=== PATIENT | female | born 1990 | race Caucasian/White ===

== ENCOUNTER 2019-04-24 13:06 | Outpatient (CLI) | payer MEDICAID ==
[2019-04-24 14:04] LABS: APPEARANCE,URINE SLIGHTLY-CLOUDY; BILIRUBIN,URINE NEGATIVE (NEGATIVE); COLOR,URINE YELLOW; GLUCOSE, URINE NEGATIVE (NEGATIVE); KETONES,URINE 80 mg/dL (NEGATIVE); LEUKOCYTE ESTERASE,URINE MODERATE (NEGATIVE); NITRITE,URINE NEGATIVE (NEGATIVE); PROTEIN,URINE NEGATIVE (NEGATIVE); URINE SPECIFIC GRAVITY 1.018; UROBILINOGEN,URINE NEGATIVE mg/dL (<2.0)
[2019-04-24] MEDS ORDERED: RINGERS SOLUTION,LACTATED 1,000 ML IV PRN (14:13)
[2019-04-24] MEDS ORDERED: ONDANSETRON HCL INJ/PF 4 MG/2 ML SDV IV ONE (14:14)
[2019-04-24] MEDS ORDERED: DIPHENOXYLATE HCL/ATROP SULF 2.5-0.025 MG TABLET PO ONE (14:15)
[2019-04-24 14:16] LABS: URINE AMPHETAMINES SCREEN NEGATIVE; URINE BARBITURATES SCREEN NEGATIVE; URINE BENZODIAZEPINES SCREEN NEGATIVE; URINE COCAINE SCREEN NEGATIVE; URINE MARIJUANA (THC) SCREEN NEGATIVE; URINE METHADONE SCREEN NEGATIVE; URINE PHENCYCLIDINE SCREEN NEGATIVE
[2019-04-24] MEDS ORDERED: ONDANSETRON HCL INJ/PF 4 MG/2 ML SDV ONE (14:20)
[2019-04-24] MEDS ORDERED: LOPERAMIDE HCL 2 MG CAPSULE PO ONE (14:26)
== END 2019-04-24 15:49 | disposition home or self-care (01) ==
LOC: LC 13:06
PROVIDERS: ATTEND Obstetrics & Gynecology
PROC: 4A1HXCZ Monitoring of Products of Conception, Cardiac Rate, External Approach (ICD-10-PCS; principal; 2019-04-24)
DX: O99.282 Endocrine, nutritional and metabolic diseases complicating pregnancy, second trimester (principal); E86.0 Dehydration; O21.2 Late vomiting of pregnancy; R10.9 Unspecified abdominal pain; Z3A.27 27 weeks gestation of pregnancy
CPT/HCPCS: 59899; 81001; 80307; J2405

== ENCOUNTER 2019-07-22 06:35 | Inpatient (IN) | payer MEDICAID ==
[2019-07-22] MEDS ORDERED: RINGERS SOLUTION,LACTATED 1,000 ML IV ONE (06:52)
[2019-07-22] MEDS ORDERED: PENICILLIN G POTASSIUM 5,000,000 UNIT in DEXTROSE 5%-WATER 100 ML IV ONE (06:52)
[2019-07-22 07:37] LABS: APPEARANCE,URINE SLIGHTLY-CLOUDY; BILIRUBIN,URINE NEGATIVE (NEGATIVE); COLOR,URINE YELLOW; GLUCOSE, URINE NEGATIVE (NEGATIVE); KETONES,URINE TRACE mg/dL (NEGATIVE); LEUKOCYTE ESTERASE,URINE LARGE (NEGATIVE); NITRITE,URINE NEGATIVE (NEGATIVE); PROTEIN,URINE NEGATIVE (NEGATIVE); URINE SPECIFIC GRAVITY 1.015; UROBILINOGEN,URINE NEGATIVE mg/dL (<2.0)
[2019-07-22 07:39] LABS: ABSOLUTE EOSINOPHILS # (AUTO) 0.1 10^3/uL (0.0-0.6); ABSOLUTE LYMPHOCYTES (AUTO) 1.8 10^3/uL (0.5-4.7); ABSOLUTE MONOCYTES (AUTO) 0.7 10^3/uL (0.1-1.4); ABSOLUTE NEUT (AUTO) 6.6 10^3/uL (1.7-8.2); BASOPHILS % (AUTO) 0.5 % (0-2); EOSINOPHILS % (AUTO) 0.7 % (0-6); HEMATOCRIT 32.1 % (36.0-47.0); LYMPHOCYTES % (AUTO) 19.7 % (13-45); MEAN CORPUSCULAR HEMOGLOBIN 30.1 pg (27.0-33.4); MEAN CORPUSCULAR HGB CONC 34.2 g/dL (32.0-36.0); MEAN CORPUSCULAR VOLUME 88 fl (80-97); MONOCYTES % (AUTO) 7.9 % (3-13); PLATELET COUNT 133 10^3/uL (150-450); RED BLOOD COUNT 3.65 10^6/uL (3.72-5.28); RED CELL DISTRIBUTION WIDTH 14.5 % (11.5-14.0); SEGMENTED NEUTROPHILS % (AUTO) 71.2 % (42-78); TOTAL CELLS COUNTED % (AUTO) 100 %; WHITE BLOOD COUNT 9.2 10^3/uL (4.0-10.5)
[2019-07-22 07:56] LABS: URINE AMPHETAMINES SCREEN NEGATIVE; URINE BARBITURATES SCREEN NEGATIVE; URINE BENZODIAZEPINES SCREEN NEGATIVE; URINE COCAINE SCREEN NEGATIVE; URINE MARIJUANA (THC) SCREEN NEGATIVE; URINE METHADONE SCREEN NEGATIVE; URINE PHENCYCLIDINE SCREEN NEGATIVE
[2019-07-22] MEDS ORDERED: PENICILLIN G-K 5 MILLION UNIT VIAL ONE ×3 (08:07→16:59)
[2019-07-22] MEDS ORDERED: OXYTOCIN/NORMAL SALINE 20 UNIT/1,000 ML RTUINJ ONE (08:07)
[2019-07-22] MEDS ORDERED: OXYTOCIN/NORMAL SALINE 20 UNIT/1,000 ML RTUINJ IV PRN ×2 (08:27→18:06)
--- NOTE | 2019-07-22 08:30 | Admission Physical ---
Datetime Report Generated by CPN: 07/22/2019 08:29 CURRENT ADMISSION Chief Complaint: Other Indication for Induction: Other Indication for Induction- Other: elective Admit Impression : Term, Intrauterine Admit Plan: Initiate Labor Induction Protocol ALLERGIES Medication Allergies: Yes Medication Allergies: cefixime/VA/rash (04/24/2019); pertussis vaccine,adsorbed/SV/rash (04/24/2019) Latex: No Latex Allergies Food Allergies: none Environmental Allergies: none OBSTETRICAL HISTORY EDC: 07/24/2019 00:00 : 2 Para: 1 Term: 1 : 0 SAB: 0 IAB: 0 Ectopic: 0 Livin Cesareans: 0 VBACs: 0 Multiple Births: 0 Gestational Diabetes: No Rh Sensitization: No Incompetent Cervix: No DONNA: No Infertility: No ART Treatment: No Uterine Anomaly: No IUGR: No Hx Previous C/S: No Macrosomia: No Hx Loss/Stillborn: No PIH: No Hx : No Placenta Previa/Abruption: No Depression/PP Depression: No PTL/PROM: No Post Hemorrhage: No Current Procedures: Ultrasound Obstetrical History Comments: G1 - 2011 baby boy 39 weeks G2 - current , polyhydramnios 29cm SEE RECORDS Alcohol: No Marijuana : No Cocaine: No Other Illicit Drugs: No Cigarettes: Never Smoker. [id number] MEDICAL HISTORY Diabetes: No Blood Transfusion: No Pulmonary Disease (Asthma, TB): No Breast Disease: No Hypertension: No Dispatch Officer Surgery: No Heart Disease: No Hosp/Surgery: Yes Autoimmune Disorder: No Anesthetic Complications: No Kidney Disease: Yes Abnormal Pap Smear: No Neuro/Epilepsy: No Psychiatric Disorders: No Other Medical Diseases: No Hepatitis/Liver Disease: No Significant Family History: No Varicosities/Phlebitis: No Trauma/Violence : No Thyroid Dysfunction: No Medical History Comments: ablasion surgery 2000 INFECTIOUS HISTORY Gonorrhea: No Genital Herpes: No Chlamydia: No Tuberculosis: No Syphilis: No Hepatitis: No HIV/AIDS Exposure: No Rash or Viral Illness: No HPV: No PHYSICAL EXAM General: Normal HEENT: Normal Neurologic: Normal Thyroid: Normal Heart: Normal Lungs: Normal Breast: Deferred Back: Normal Abdomen: Normal Genitourinary Exam: Normal Extremities: Normal DTRs: Normal Pelvic Type: Adequate FETUS A EGA: 39.5 PLANS FOR LABOR AND DELIVERY Labor and Delivery: None Pain Management: Epidural Feeding Preference: Breast Benefit of Breast Feed Discussed: Yes Circumcision: Yes INFORMED CONSENT Signature: with User ID: [email or web address]
[2019-07-22] MEDS: RINGERS SOLUTION,LACTATED 1,000 ML IV PRN ×2 (08:45→10:43)
[2019-07-22] MEDS ORDERED: LIDOCAINE 1% INJ-PF (10 MG/ML) 30 ML SDV ONE (12:36)
[2019-07-22] MEDS ORDERED: MISOPROSTOL 0.2 MG TABLET ONE (12:36)
[2019-07-22] MEDS: PENICILLIN G POTASSIUM 2,500,000 UNIT in DEXTROSE 5%-WATER 50 ML IV SCH ×4 (12:45→22:58)
[2019-07-22] MEDS ORDERED: FENTANYL CITRATE INJ/PF 100 MCG/2 ML AMPUL ONE (14:50)
[2019-07-22] MEDS ORDERED: PHENYLEPHRINE HCL INJ/PF 10 MG/1 ML SDV ONE (14:50)
[2019-07-22] MEDS ORDERED: EPHEDRINE SULFATE INJ 50 MG/1 ML AMPULE ONE (14:50)
[2019-07-22] MEDS ORDERED: BUPIVACAINE HCL 0.25 % INJ/PF (2.5 MG/1 ML) 30 ML VIAL ONE (14:51)
[2019-07-22] MEDS ORDERED: FENTANYL/BUPIVACAINE/NS/PF 300 MCG/150 ML RTUINJ EPI ONE (14:51)
[2019-07-22] MEDS ORDERED: BENZOCAINE/MENTHOL AEROSOL SPRAY 56 ML TOP PRN (18:06)
[2019-07-22] MEDS ORDERED: MEASLES,MUMPS&RUBELLA VACC/PF 0.5 ML VIAL SUBCUT PRN (18:06)
[2019-07-22] MEDS ORDERED: ACETAMINOPHEN 650 MG SUPP.RECT PR PRN (18:06)
[2019-07-22] MEDS ORDERED: ZOLPIDEM TARTRATE 5 MG TABLET PO PRN (18:06)
[2019-07-22] MEDS ORDERED: PROMETHAZINE HCL 25 MG TABLET PO PRN (18:06)
[2019-07-22] MEDS ORDERED: ACETAMINOPHEN WITH CODEINE #3 TABLET PO PRN (18:06)
[2019-07-22] MEDS ORDERED: NA PHOS,M-B/NA PHOS,DI-BA (ADULT) 133 ML ENEMA PR PRN (18:06)
[2019-07-22] MEDS ORDERED: MAGNESIUM HYDROXIDE SUSP 30 ML UDCUP PO PRN (18:06)
[2019-07-22] MEDS ORDERED: PROMETHAZINE HCL 25 MG SUPP.RECT PR PRN (18:06)
[2019-07-22] MEDS ORDERED: DIPHENHYDRAMINE HCL 25 MG CAPSULE PO PRN (18:06)
[2019-07-22] MEDS ORDERED: GLYCERIN/WITCH HAZEL LEAF 1 EACH MED..WIPE TP PRN (18:06)
[2019-07-22] MEDS ORDERED: DIPH/PERTUSS(ACELL)/TETANUS VAC/PF 0.5 ML SYR (>=10YO) IM PRN (18:06)
[2019-07-22] MEDS ORDERED: PROMETHAZINE HCL INJ 25 MG/1 ML VIAL IV PRN (18:06)
[2019-07-22] MEDS ORDERED: DIBUCAINE 1% OINTMENT 56 GM TP PRN (18:06)
[2019-07-22] MEDS ORDERED: PSEUDOEPHEDRINE HCL 30 MG TABLET PO PRN (18:06)
--- NOTE | 2019-07-22 19:01 | Delivery Summary ---
Del Sum A-C Datetime Report Generated by CPN: 07/22/2019 19:01 DELIVERY PERSONNEL DELIVERY PERSONNEL: [id number] Delivery Doctor:: Ignacio James MD Labor and Delivery Nurse:: Hortencia Hanna RNmanager training Nurse:: RADHA Ritter Janitor And Cleaner:: Olga Lidia Mueller RN Nursery Nurse:: Ana Paula Lang RN Nursery Nurse:: Jane Nunes LPN Dean Of Graduate Studies/ANIMAL CAREGIVER: Abi Rasmussen CNA II Additional Personnel: : Sandra Blair RN MATERNAL INFORMATION Delivery Anesthesia: Epidural Medications After Delivery: Pitocin Bolus-Please Comment Meds After Delivery Comment: Pitocin 20 Delivery QBL: 105 Maternal Complications: None LABOR SUMMARY EDC: 07/24/2019 00:00 No. Babies in Womb: 1 Attempted: No Labor Anesthesia: Epidural LABOR INFORMATION Reason for Induction: Polyhydramnios Reason for Induction- Other: elective Onset of Labor: 07/22/2019 13:35 Complete Dilatation: 07/22/2019 17:27 Oxytocin: Induction Group B Beta Strep: positive Antibiotics # of Doses: 3 Antibiotics Time of Last Dose: 1707 Name of Antibiotic Given: Penicillin G Steroids Given: None Reason Steroids Not Administered: Not Applicable MEMBRANES Membranes Rupture Method: Artificial Rupture of Membranes: 07/22/2019 13:35 Length of Rupture (hr): 4.40 Amniotic Fluid Color: Clear Amniotic Fluid Amount: Small Amniotic Fluid Odor: Normal STAGES OF LABOR Stage 1 hr: 3 Stage 1 min: 52 Stage 2 hr: 0 Stage 2 min: 32 Stage 3 hr: 0 Stage 3 min: 4 Total Time in Labor hr: 4 Total Time in Labor min: 28 VAGINAL DELIVERY Episiotomy: None Laceration #1: None Laceration Extension #1: N/A Sharps Count Correct: N/A CSECTION DELIVERY Primary Indication: N/A Secondary Indication: N/A CSection Incidence: N/A Labor: N/A Elective: N/A CSection Incision: N/A BABY A INFORMATION Infant Delivery Date/Time: 07/22/2019 17:59 Method of Delivery: Vaginal Born in Route : No : N/A Forceps: N/A Vacuum Extraction: Successful Shoulder Dystocia : No PRESENTATION/POSITION BABY A Presentation: Cephalic Cephalic Presentation: Vertex Vertex Position: Right Occipital Anterior Breech Presentation: N/A PLACENTA INFORMATION BABY A Placenta Delivery Time : 07/22/2019 18:03 Placenta Method of Delivery: Spontaneous Placenta Status: Delivered SCORES BABY A Heart Rate 1 min: >100 bpm Resp Effort 1 min: Slow, Irregular Reflex Irritability 1 min: Cough or Sneeze or Pulls Away Muscle Tone 1 min: Active Motion Color 1 min: Body [place], Extremities Blue Resuscitation Effort 1 min: Tactile Stimulation SCORE 1 MIN: 8 Heart Rate 5 min: >100 bpm Resp Effort 5 min: Good Cry Reflex Irritability 5 min: Cough or Sneeze or Pulls Away Muscle Tone 5 min: Active Motion Color 5 min: Body Mine [place], Extremities Blue SCORE 5 MIN: 9 Resuscitation Effort 10 min: N/A INFANT INFORMATION BABY A Gestational Age at Delivery: 39.5 Gestational Status: Full Term- 39- 40.6 Weeks Outcome : Liveborn Infant Condition : Stable Sex: Male IDENTIFICATION BABY A Verification Date/Time: 07/22/2019 18:43 ID Band Number: [id number] Mother's Name Verified: Yes Infant RN Verifying Infant: Sarah Camp RNC Additional Verifying Personnel: Hortencia Hanna RN WEIGHT/LENGTH BABY A Infant Birthweight (gm): 4362 Infant Weight (lb): 9 Infant Weight (oz): 10 Infant Length (in): 22.00 Length (cm): 55.88 CORD INFORMATION BABY A No. Cord Vessels: 3 Nuchal Cord : N/A Cord Blood Taken: Yes-For Storage (Mom's Blood type +) Suction: Mouth; Nose ASSESSMENT BABY A Infant Complications: None Physical Findings at Delivery: Caput Succedaneum; Bruising Infant Respirations: Appears Normal Skin to Skin: Yes Mobile Phone Salesperson/ALS Called : No Care By: Rosa Rickey RN Transferred To: Remains with Mother BABY B INFORMATION : N/A SIGNATURES Signature: with User ID: [email or web address] : I personally evaluated and examined the patient in conjunction with the MLP and agree with the assessment, treatment plan and disposition.
[2019-07-22] MEDS ORDERED: OXYTOCIN 10 UNIT/ML VIAL ONE (19:44)
[2019-07-22] MEDS ORDERED: IBUPROFEN 800 MG TABLET ONE (20:43)
[2019-07-22] MEDS ORDERED: BENZOCAINE/MENTHOL AEROSOL SPRAY 56 ML ONE (20:43)
[2019-07-22] MEDS: FAMOTIDINE 20 MG TABLET PO SCH (22:49)
[2019-07-22] MEDS: IBUPROFEN 800 MG TABLET PO SCH (22:49)
[2019-07-23] MEDS: PENICILLIN G POTASSIUM 2,500,000 UNIT in DEXTROSE 5%-WATER 50 ML IV SCH ×2 (03:13→06:16)
[2019-07-23] MEDS: IBUPROFEN 800 MG TABLET PO SCH ×3 (05:30→21:42)
[2019-07-23 06:36] LABS: HEMATOCRIT 27.9 % (36.0-47.0); HEMOGLOBIN 9.4 g/dL (12.0-15.5); MEAN CORPUSCULAR HEMOGLOBIN 29.6 pg (27.0-33.4); MEAN CORPUSCULAR HGB CONC 33.7 g/dL (32.0-36.0); MEAN CORPUSCULAR VOLUME 88 fl (80-97); PLATELET COUNT 133 10^3/uL (150-450); RED BLOOD COUNT 3.18 10^6/uL (3.72-5.28); RED CELL DISTRIBUTION WIDTH 14.5 % (11.5-14.0); WHITE BLOOD COUNT 13.9 10^3/uL (4.0-10.5)
[2019-07-23] MEDS: PRENATAL VITAMIN W DHA CAPSULE PO SCH (10:05)
[2019-07-23] MEDS: FERROUS SULFATE 325 MG TABLET PO SCH ×2 (10:06→17:48)
[2019-07-23] MEDS: SENNOSIDES/DOCUSATE 8.6-50 MG 1 EACH TABLET PO SCH (10:06)
[2019-07-23] MEDS: DOCUSATE SODIUM 100 MG CAPSULE PO SCH ×2 (10:06→17:48)
[2019-07-23] MEDS: FAMOTIDINE 20 MG TABLET PO SCH ×2 (10:07→21:43)
--- NOTE | 2019-07-23 13:11 | PDOC PROGRESS REPORT ---
Subjective-OB Progress Note for:: 07/23/19 Subjective: reports bleeding slowing, pain controlled with current meds, no complaints Physical Exam (OB) Vital Signs: Temp Pulse Resp BP Pulse Ox 97.8 F 88 16 102/62 98 07/23/19 07:24 07/23/19 07:24 07/22/19 22:10 07/23/19 07:24 07/23/19 07:24 Intake & Output 07/22/19 07/23/19 07/24/19 06:59 06:59 06:59 Intake Total 726 Balance 726 Weight 93.509 kg - Abdomen Description: Soft, Round Hernia Present: No Fundal Description: Firm, Midline Fundal Height: u/u - u/2 - Abdominal Distension: No distension Tenderness: Nontender - Extremities Lower extremities: Viri's sign - neg Calf: Normal, Nontender Objective-Diagnostic Laboratory: 07/23/19 06:08 07/23/19 06:08 WBC 13.9 H RBC 3.18 L Hgb 9.4 L Hct 27.9 L MCV 88 MCH 29.6 MCHC 33.7 RDW 14.5 H Plt Count 133 L Assessment and Plan(PN) - Assessment and Plan (1) Vacuum-assisted vaginal delivery Is this a current diagnosis for this admission?: Yes - Time Spent with Patient Time with patient: Less than 15 minutes - Disposition Anticipated Discharge: Home Within: within 24 hours
--- NOTE | 2019-07-23 13:13 | PDOC DISCHARGE SUMMARY ---
Impression - Admit/DC Date/PCP Admission Date/Primary Care Provider: 07/22/19 06:35 JOAN ESCOBEDO MD Discharge Date: 07/23/19 - Discharge Diagnosis (1) Vacuum-assisted vaginal delivery Is this a current diagnosis for this admission?: Yes - Additional Information Discharge Diet: Regular Discharge Activity: Balance Activity w/Rest, No Lifting/Push/Pulling, Pelvic Rest, No tub bath Referrals: [facility] [Provider Group] Home Medications: Pnv W-O Ca No5/Fe Fumarate/FA [-U Capsule] 1 each PO DAILY 11/09/11 Results Laboratory Results: WBC 13.9 10^3/uL (4.0-10.5) H 07/23/19 06:08 RBC 3.18 10^6/uL (3.72-5.28) L 07/23/19 06:08 Hgb 9.4 g/dL (12.0-15.5) L 07/23/19 06:08 Hct 27.9 % (36.0-47.0) L 07/23/19 06:08 MCV 88 fl (80-97) 07/23/19 06:08 MCH 29.6 pg (27.0-33.4) 07/23/19 06:08 MCHC 33.7 g/dL (32.0-36.0) 07/23/19 06:08 RDW 14.5 % (11.5-14.0) H 07/23/19 06:08 Plt Count 133 10^3/uL (150-450) L 07/23/19 06:08 Lymph % (Auto) 19.7 % (13-45) 07/22/19 07:28 [place] % (Auto) 7.9 % (3-13) 07/22/19 07:28 Eos % (Auto) 0.7 % (0-6) 07/22/19 07:28 Baso % (Auto) 0.5 % (0-2) 07/22/19 07:28 Absolute Neuts (auto) 6.6 10^3/uL (1.7-8.2) 07/22/19 07:28 Absolute Lymphs (auto) 1.8 10^3/uL (0.5-4.7) 07/22/19 07:28 Absolute Monos (auto) 0.7 10^3/uL (0.1-1.4) 07/22/19 07:28 Absolute Eos (auto) 0.1 10^3/uL (0.0-0.6) 07/22/19 07:28 Absolute Basos (auto) 0.0 10^3/uL (0.0-0.2) 07/22/19 07:28 Seg Neutrophils % 71.2 % (42-78) 07/22/19 07:28 Urine Color YELLOW 07/22/19 07:10 Urine Appearance SLIGHTLY-CLOUDY 07/22/19 07:10 Urine pH 6.0 (5.0-9.0) 07/22/19 07:10 Ur Specific [place] 1.015 07/22/19 07:10 Urine Protein NEGATIVE mg/dL (NEGATIVE) 07/22/19 07:10 Urine Glucose (UA) NEGATIVE mg/dL (NEGATIVE) 07/22/19 07:10 Urine Ketones TRACE mg/dL (NEGATIVE) H 07/22/19 07:10 Urine Blood NEGATIVE (NEGATIVE) 07/22/19 07:10 Urine Nitrite NEGATIVE (NEGATIVE) 07/22/19 07:10 Urine Bilirubin NEGATIVE (NEGATIVE) 07/22/19 07:10 Urine Urobilinogen NEGATIVE mg/dL (<2.0) 07/22/19 07:10 Ur Leukocyte Esterase LARGE (NEGATIVE) H 07/22/19 07:10 Urine Ascorbic Acid NEGATIVE (NEGATIVE) 07/22/19 07:10 Urine Opiates Screen NEGATIVE 07/22/19 07:10 Urine Methadone Screen NEGATIVE 07/22/19 07:10 Ur Barbiturates Screen NEGATIVE 07/22/19 07:10 Ur Phencyclidine Scrn NEGATIVE 07/22/19 07:10 Ur Amphetamines Screen NEGATIVE 07/22/19 07:10 U Benzodiazepines Scrn NEGATIVE 07/22/19 07:10 Urine Cocaine Screen NEGATIVE 07/22/19 07:10 U Marijuana (THC) Screen NEGATIVE 07/22/19 07:10 RPR NONREACTIVE (NONREACTIVE) 07/22/19 07:28 Blood Type O POSITIVE 07/22/19 07:28 Antibody Screen NEGATIVE 07/22/19 07:28
[2019-07-24] MEDS: IBUPROFEN 800 MG TABLET PO SCH ×2 (05:03→13:55)
[2019-07-24] MEDS: FAMOTIDINE 20 MG TABLET PO SCH (10:57)
[2019-07-24] MEDS: DOCUSATE SODIUM 100 MG CAPSULE PO SCH (10:57)
[2019-07-24] MEDS: FERROUS SULFATE 325 MG TABLET PO SCH (10:57)
[2019-07-24] MEDS: PRENATAL VITAMIN W DHA CAPSULE PO SCH (10:57)
[2019-07-24] MEDS: SENNOSIDES/DOCUSATE 8.6-50 MG 1 EACH TABLET PO SCH (10:57)
--- NOTE | 2019-07-24 11:37 | PDOC DISCHARGE SUMMARY ---
Impression - Admit/DC Date/PCP Admission Date/Primary Care Provider: 07/22/19 06:35 JOAN ESCOBEDO MD Discharge Date: 07/24/19 - Discharge Diagnosis (1) Vacuum-assisted vaginal delivery Is this a current diagnosis for this admission?: Yes - Additional Information Discharge Diet: Regular Discharge Activity: Balance Activity w/Rest, Pelvic Rest Referrals: [facility] [Provider Group] Prescriptions: Ibuprofen [Motrin 800 mg Tablet] 800 mg PO Q8HP PRN #60 tablet PRN Reason: Home Medications: Pnv W-O Ca No5/Fe Fumarate/FA [-U Multiple Vitamin Capsule] 1 each PO DAILY 11/09/11 Ibuprofen [Motrin 800 mg Tablet] 800 mg PO Q8HP PRN #60 tablet 07/24/19 HPI Gestational Age: 39.5 Reason(s) for Admission: Induction of Labor - for polyhydramnios Intrapartum Procedure(s): Vacuum Extraction Hospital Course Hospital Course: G2 now P2 was admitted for IOL, underwent VAD with no lacerations, is stable and ready to be discharged PP day #2 Results Laboratory Results: WBC 13.9 10^3/uL (4.0-10.5) H 07/23/19 06:08 RBC 3.18 10^6/uL (3.72-5.28) L 07/23/19 06:08 Hgb 9.4 g/dL (12.0-15.5) L 07/23/19 06:08 Hct 27.9 % (36.0-47.0) L 07/23/19 06:08 MCV 88 fl (80-97) 07/23/19 06:08 MCH 29.6 pg (27.0-33.4) 07/23/19 06:08 MCHC 33.7 g/dL (32.0-36.0) 07/23/19 06:08 RDW 14.5 % (11.5-14.0) H 07/23/19 06:08 Plt Count 133 10^3/uL (150-450) L 07/23/19 06:08 Lymph % (Auto) 19.7 % (13-45) 07/22/19 07:28 [place] % (Auto) 7.9 % (3-13) 07/22/19 07:28 Eos % (Auto) 0.7 % (0-6) 07/22/19 07:28 Baso % (Auto) 0.5 % (0-2) 07/22/19 07:28 Absolute Neuts (auto) 6.6 10^3/uL (1.7-8.2) 07/22/19 07:28 Absolute Lymphs (auto) 1.8 10^3/uL (0.5-4.7) 07/22/19 07:28 Absolute Monos (auto) 0.7 10^3/uL (0.1-1.4) 07/22/19 07:28 Absolute Eos (auto) 0.1 10^3/uL (0.0-0.6) 07/22/19 07:28 Absolute Basos (auto) 0.0 10^3/uL (0.0-0.2) 07/22/19 07:28 Seg Neutrophils % 71.2 % (42-78) 07/22/19 07:28 Urine Color YELLOW 07/22/19 07:10 Urine Appearance SLIGHTLY-CLOUDY 07/22/19 07:10 Urine pH 6.0 (5.0-9.0) 07/22/19 07:10 Ur Specific [place] 1.015 07/22/19 07:10 Urine Protein NEGATIVE mg/dL (NEGATIVE) 07/22/19 07:10 Urine Glucose (UA) NEGATIVE mg/dL (NEGATIVE) 07/22/19 07:10 Urine Ketones TRACE mg/dL (NEGATIVE) H 07/22/19 07:10 Urine Blood NEGATIVE (NEGATIVE) 07/22/19 07:10 Urine Nitrite NEGATIVE (NEGATIVE) 07/22/19 07:10 Urine Bilirubin NEGATIVE (NEGATIVE) 07/22/19 07:10 Urine Urobilinogen NEGATIVE mg/dL (<2.0) 07/22/19 07:10 Ur Leukocyte Esterase LARGE (NEGATIVE) H 07/22/19 07:10 Urine Ascorbic Acid NEGATIVE (NEGATIVE) 07/22/19 07:10 Urine Opiates Screen NEGATIVE 07/22/19 07:10 Urine Methadone Screen NEGATIVE 07/22/19 07:10 Ur Barbiturates Screen NEGATIVE 07/22/19 07:10 Ur Phencyclidine Scrn NEGATIVE 07/22/19 07:10 Ur Amphetamines Screen NEGATIVE 07/22/19 07:10 U Benzodiazepines Scrn NEGATIVE 07/22/19 07:10 Urine Cocaine Screen NEGATIVE 07/22/19 07:10 U Marijuana (THC) Screen NEGATIVE 07/22/19 07:10 RPR NONREACTIVE (NONREACTIVE) 07/22/19 07:28 Blood Type O POSITIVE 07/22/19 07:28 Antibody Screen NEGATIVE 07/22/19 07:28 Plan Plan of Treatment: PP check at [facility] in 4 weeks
[2019-07-24 15:22] VITALS: BP 110/67
== END 2019-07-24 15:50 | disposition home or self-care (01) | DRG 807 ==
LOC: LR 06:35 → 2S 21:59
PROVIDERS: ADMIT Obstetrics & Gynecology Gynecology; ATTEND Obstetrics & Gynecology Gynecology
PROC: 10D07Z6 Extraction of Products of Conception, Vacuum, Via Natural or Artificial Opening (ICD-10-PCS; principal; 2019-07-22)
PROC: 3E033VJ Introduction of Other Hormone into Peripheral Vein, Percutaneous Approach (ICD-10-PCS; 2019-07-22)
PROC: 10907ZC Drainage of Amniotic Fluid, Therapeutic from Products of Conception, Via Natural or Artificial Opening (ICD-10-PCS; 2019-07-22)
DX: O40.3XX0 Polyhydramnios, third trimester, not applicable or unspecified (principal); Z37.0 Single live birth; O99.824 Streptococcus B carrier state complicating childbirth; Z3A.39 39 weeks gestation of pregnancy; Z88.1 Allergy status to other antibiotic agents; Z88.7 Allergy status to serum and vaccine
CPT/HCPCS: 36415; 80307; 81005; 85025; 85027; 86592; 86850; 86900; 86901; J2370; J2540; J2590; J3010; J3490